=== PATIENT | male | born 1965 | race Hispanic/Latino ===

== ENCOUNTER 2021-05-05 09:19 | Emergency (ER) | payer OTHER | END 2021-05-05 10:47 | disposition home or self-care (01) | LOC: ERS 09:19 | DX: L01.03 Bullous impetigo (principal); E78.5 Hyperlipidemia, unspecified; I10 Essential (primary) hypertension; F17.210 Nicotine dependence, cigarettes, uncomplicated | CPT/HCPCS: 99282 ==

== ENCOUNTER 2022-12-10 12:00 | Inpatient (IN) | payer BC ==
[2022-12-23] MEDS ORDERED: Phenylephrine 10 MG/ML VIAL ONE (06:48)
[2022-12-23] MEDS ORDERED: Fentanyl 250 MCG/5 ML VIAL ONE (06:48)
[2022-12-23] MEDS ORDERED: Midazolam HCl 2 mg/2 ml Vial ONE ×2 (06:48→07:44)
[2022-12-23] MEDS ORDERED: Ondansetron ODT 4 MG TAB ONE (07:15)
[2022-12-23 07:27] LABS: SARS-CoV-2 NAA Rapid Test Not Detected (NotDetected)
[2022-12-23] MEDS ORDERED: Sodium Chloride 0.9% 100 ML ONE (07:33)
[2022-12-23] MEDS ORDERED: ceFOXitin 1 GM VIAL ONE (07:33)
[2022-12-23] MEDS ORDERED: Rocuronium Bromide 10 MG/ML (10ML VIAL) ONE (08:29)
[2022-12-23] MEDS ORDERED: Ondansetron PF 4 MG/2 ML Vial ONE (08:29)
[2022-12-23] MEDS ORDERED: NEOSTIGMINE 3 MG/3 ML SYR 3 MG/3 ML SYRINGE ONE (08:29)
[2022-12-23] MEDS ORDERED: Dexamethasone 20 MG/5 ML VIAL ONE (08:29)
[2022-12-23] MEDS ORDERED: Lidocaine 1% PF 5 ML VIAL ONE (08:29)
[2022-12-23] MEDS ORDERED: PHENYLEPHRINE-NS 100 MCG/ML 10 ML SYRINGE ONE (08:29)
[2022-12-23] MEDS ORDERED: Vecuronium 10 MG VIAL ONE (08:29)
[2022-12-23] MEDS ORDERED: Glycopyrrolate 0.2 MG/ML 5 ML SYRINGE ONE (08:29)
[2022-12-23] MEDS ORDERED: PROPOFOL 200 MG/20 ML VIAL ONE (08:29)
[2022-12-23] MEDS ORDERED: Bupivacaine PF 0.5% 30 ML VIAL ONE (10:59)
[2022-12-23] MEDS ORDERED: Ondansetron HCl/PF 4 MG/2 ML Vial IVP PRN (13:05)
[2022-12-23] MEDS ORDERED: Promethazine HCl 25 MG/ML VIAL IM PRN (13:05)
[2022-12-23] MEDS ORDERED: Fentanyl 100 MCG/2 ML VIAL ONE (13:16)
[2022-12-23] MEDS ORDERED: Mag-Al 1200 mg/1200 mg/30 ML UDCUP PO PRN (13:52)
[2022-12-23] MEDS ORDERED: diphenhydrAMINE 25 MG CAP PO PRN (13:52)
[2022-12-23] MEDS ORDERED: Oxybutynin 5 MG TAB PO PRN (13:52)
[2022-12-23] MEDS ORDERED: Ondansetron PF 4 MG/2 ML Vial IVP PRN (13:52)
[2022-12-23] MEDS ORDERED: Fentanyl 100 MCG/2 ML VIAL SLOW IVP PRN (13:52)
[2022-12-23] MEDS ORDERED: oxyCODONE 5 MG TAB PO PRN (13:52)
[2022-12-23] MEDS ORDERED: hydrALAZINE 20 MG/ML VIAL SLOW IVP PRN (13:52)
[2022-12-23] MEDS ORDERED: Hyoscyamine SL 0.125 MG TAB SL PRN (13:52)
[2022-12-23] MEDS ORDERED: cefOXitin 1.5 GM in Sodium Chloride 0.9% 100 ML IVPB SCH (14:00)
[2022-12-23] MEDS: oxyCODONE 5 MG TAB PO PRN ×2 (15:34→20:13)
[2022-12-23 15:41] LABS: Hemoglobin 14.7 g/dL (14.0-18.0); Mean Corpuscular HGB CONC 33.4 g/dL (32.0-36.0); Mean Corpuscular Hemoglobin 31.4 pg (27.0-31.0); Mean Corpuscular Volume 94.1 fl (78.0-98.0); Mean Platelet Volume 7.9 fL (7.4-10.4); Platelet Count 289 10x3/uL (130-400); RBC Distribution Width 12.5 % (11.5-14.5); Red Blood Cell (RBC) Count 4.67 mill/uL (4.70-6.10)
[2022-12-23 16:07] LABS: Anion Gap 11 mmol/L (10-20); BUN (Urea Nitrogen) 11 mg/dL (8.4-25.7); Calc. Creatinine Clearance 118 mL/min (70-130); Calcium 8.8 mg/dL (7.8-10.44); Carbon Dioxide 20 mmol/L (22-29); Chloride 109 mmol/L (98-107); Estimated GFR 102; Glucose 135 mg/dL (70-105); Potassium 3.4 mmol/L (3.5-5.1); Sodium 137 mmol/L (136-145)
[2022-12-23] MEDS: Ketorolac Tromethamine 30 MG/ML VIAL IVP SCH (18:24)
[2022-12-23] MEDS: Acetaminophen 500 MG TAB PO SCH (18:25)
[2022-12-23] MEDS: Sodium Chloride 0.9% 1,000 ML IV SCH ×2 (18:28→20:16)
[2022-12-23] MEDS: traMADol HCl 50 MG TAB PO SCH ×2 (18:29→23:59)
[2022-12-23] MEDS: Docusate 100 MG CAP PO SCH (20:08)
[2022-12-23] MEDS: cefOXitin 2 GM in Sodium Chloride 0.9% 100 ML IVPB SCH (20:10)
[2022-12-24] MEDS: Ketorolac Tromethamine 30 MG/ML VIAL IVP SCH ×3 (00:01→13:02)
[2022-12-24] MEDS: cefOXitin 2 GM in Sodium Chloride 0.9% 100 ML IVPB SCH ×2 (04:37→16:50)
[2022-12-24 05:36] LABS: #Lymphocytes 2.1 thou/uL (1.20-3.40); #Monocytes 1.2 thou/uL (0.11-0.59); #Neutrophils 10.3 thou/uL (1.40-6.50); %Basophils 0.1 % (0.0-1.0); %Eosinophils 0.1 % (0.0-10.0); %Lymphocytes 15.7 % (21.0-51.0); %Monocytes 8.6 % (0.0-10.0); %Neutrophils 75.5 % (42.0-75.0); Hemoglobin 12.4 g/dL (14.0-18.0); Mean Corpuscular HGB CONC 32.9 g/dL (32.0-36.0); Mean Corpuscular Hemoglobin 30.5 pg (27.0-31.0); Mean Platelet Volume 7.9 fL (7.4-10.4); Platelet Count 247 10x3/uL (130-400); RBC Distribution Width 12.4 % (11.5-14.5); Red Blood Cell (RBC) Count 4.04 mill/uL (4.70-6.10); White Blood Cell (WBC) Count 13.6 10x3/uL (4.8-10.8)
[2022-12-24] MEDS: traMADol HCl 50 MG TAB PO SCH ×2 (05:45→13:03)
[2022-12-24] MEDS: Acetaminophen 500 MG TAB PO SCH ×3 (05:46→13:04)
[2022-12-24 05:59] LABS: Anion Gap 11 mmol/L (10-20); BUN (Urea Nitrogen) 11 mg/dL (8.4-25.7); Calc. Creatinine Clearance 0 mL/min (70-130); Calcium 8.2 mg/dL (7.8-10.44); Carbon Dioxide 22 mmol/L (22-29); Chloride 106 mmol/L (98-107); Estimated GFR 93; Glucose 102 mg/dL (70-105); Potassium 3.9 mmol/L (3.5-5.1); Sodium 135 mmol/L (136-145)
[2022-12-24] MEDS: Docusate 100 MG CAP PO SCH (10:25)
[2022-12-24 15:43] VITALS: BP 116/66; TEMP 97.9
== END 2022-12-24 17:05 | disposition home or self-care (01) | DRG 708 ==
LOC: SURG A 12-23 05:47 → SJJU 12-23 14:57
PROVIDERS: ADMIT Urology; ATTEND Urology
PROC: 07TC4ZZ Resection of Pelvis Lymphatic, Percutaneous Endoscopic Approach (ICD-10-PCS; principal; 2022-12-23)
PROC: 0VT04ZZ Resection of Prostate, Percutaneous Endoscopic Approach (ICD-10-PCS; 2022-12-23)
PROC: 8E0W4CZ Robotic Assisted Procedure of Trunk Region, Percutaneous Endoscopic Approach (ICD-10-PCS; 2022-12-23)
PROC: 0VT34ZZ Resection of Bilateral Seminal Vesicles, Percutaneous Endoscopic Approach (ICD-10-PCS; 2022-12-23)
DX: C61 Malignant neoplasm of prostate (principal); F10.10 Alcohol abuse, uncomplicated; Z20.822 Contact with and (suspected) exposure to COVID-19
CPT/HCPCS: 36415; 80048; 85025; 85027; 86850; 86900; 86901; 88309; C1713; C1776; J0694; J1100; J1642; J1885; J2250; J2370; J2405; J2704; J3010; J3490; J7050; Q0162; S0020; U0002

== ENCOUNTER 2022-12-14 12:19 | Outpatient (CLI) | payer BC ==
[2022-12-14 13:14] LABS: Hemoglobin 14.3 g/dL (13.5-17.5); Mean Corpuscular HGB CONC 33.3 g/dL (32.0-36.0); Mean Corpuscular Hemoglobin 29.9 pg (27.0-33.0); Mean Corpuscular Volume 89.8 fl (81.2-95.1); Platelet Count 292 10x3/uL (150-450); RBC Distribution Width 13.8 % (11.5-14.5); Red Blood Cell (RBC) Count 4.79 10x6/uL (4.32-5.72)
[2022-12-14 13:18] LABS: PTT 27.9 sec (22.0-33.0); Prothrombin Time 10.7 sec (9.5-12.1)
[2022-12-14 13:26] LABS: ALT (SGPT) 57 U/L (8-55); AST (SGOT) 36 U/L (5-34); Albumin 4.5 g/dL (3.5-5.0); Alkaline Phosphatase 68 U/L (40-110); Anion Gap 12 mmol/L (10-20); BUN (Urea Nitrogen) 15 mg/dL (8.4-25.7); Bilirubin, Total 0.7 mg/dL (0.2-1.2); Calc. Creatinine Clearance 0 mL/min (70-130); Calcium 9.6 mg/dL (7.8-10.44); Carbon Dioxide 26 mmol/L (22-29); Chloride 107 mmol/L (98-107); Estimated GFR 101; Globulin 2.9 g/dL (2.4-3.5); Glucose 95 mg/dL (70-105); Potassium 4.1 mmol/L (3.5-5.1); Protein, Total 7.4 g/dL (6.0-8.3); Sodium 141 mmol/L (136-145)
[2022-12-14 14:37] LABS: Bilirubin Neg (Negative); Blood, Urine 10 (Negative); Clarity Clear (Clear); Glucose, Urine (Dipstick) Normal (Negative); Ketone, Urine Negative (Negative); Leukocyte Negative (Negative); Nitrite Negative (Negative); Protein, Urine (Dipstick) Negative (Neg-Trace); Urobilinogen Normal mg/dL (Less than 2)
[2022-12-14 14:58] LABS: Bacteria/HPF None Seen HPF (None Seen); RBC/HPF 0-3 HPF (0-3); Squamous Epithelial None Seen HPF (0-3); WBC/HPF None Seen HPF (0-3)
== END 2022-12-14 12:20 | disposition home or self-care (01) ==
LOC: LABBT 12:19
PROVIDERS: ATTEND Urology
DX: Z01.812 Encounter for preprocedural laboratory examination (principal); C61 Malignant neoplasm of prostate
CPT/HCPCS: 80053; 81001; 85027; 85610; 85730; 87086

== ENCOUNTER 2025-11-08 12:38 | Emergency (ER) | payer OTHER | END 2025-11-08 15:14 | disposition home or self-care (01) | LOC: ERS 12:38 | DX: S61.421A Laceration with foreign body of right hand, initial encounter (principal); I10 Essential (primary) hypertension; F17.210 Nicotine dependence, cigarettes, uncomplicated; W25.XXXA Contact with sharp glass, initial encounter | CPT/HCPCS: 12002; 99283 ==